=== PATIENT | male | born 1975 | race Caucasian/White ===

== ENCOUNTER 2016-11-29 13:00 | Emergency (ER) | payer SELFPAY ==
[2016-11-29 13:37] VITALS: BP 139/97
[2016-11-29] MEDS ORDERED: NACL 0.9% IR ONE (15:48)
[2016-11-29] MEDS ORDERED: MOTRIN PO ONE (15:48)
[2016-11-29] MEDS ORDERED: BOOSTRIX IM ONE (15:48)
[2016-11-29] MEDS ORDERED: TRIPLE ANTIBIOTIC TP ONE (15:48)
[2016-11-29] MEDS ORDERED: XYLOCAINE 1% 20 mL INFILTRATI ONE (16:13)
--- NOTE | 2016-11-29 16:56 | Emergency Department Report ---
Entered by SRIKANTH THOMAS, acting as scribe for SHARDA DEUTSCH NP. - General Chief Complaint: Laceration/Recheck/Suture Stated Complaint: LT FINGER LAC Time Seen by Provider: 11/29/16 15:45 Source: patient Mode of arrival: Ambulatory Limitations: No Limitations - History of Present Illness Initial Comments: 41 y/o male with no significant PMHx presents to the ED c/o a laceration to left middle finger that began today at 13:00. 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 Associated numbness to left middle finger, but he denies any pain/other injuries, tingling, fever, and chills. Denies LOC and head injury. Not UTD with tetanus. Patient states he did not take any medication for pain [employer]. NKDA. -: Sudden, This afternoon Time: 13:00 Location: other (left middle finger) Extremity Location: Left: Hand (middle finger) Place: work Patient Tetanus UTD: No Context: accidental, sharp object use (cut left middle finger while using a farebox repairer) Associated Symptoms: loss of feeling/numbness (numbness in left middle finger, but denies loss of feeling). denies: pain, suspect foreign body present, unable to move injured part, weakness followed by dizziness, nausea/vomiting, fever Treatments Prior to Arrival: bandage - Related Data Previous Rx's Medication Instructions Recorded Last Taken Type Cephalexin [Keflex] 500 mg PO Q6HR #28 capsule 11/29/16 Unknown Rx Ibuprofen [Motrin] 600 mg PO Q8H PRN #15 tablet 11/29/16 Unknown Rx Allergies Allergy/AdvReac Type Severity Reaction Status Date / Time No Known Allergies Allergy Unverified 11/29/16 13:34 ED Review of Systems Comment: All other systems reviewed and negative Constitutional: denies: chills, fever Respiratory: denies: cough, shortness of breath, wheezing Cardiovascular: denies: chest pain, palpitations Gastrointestinal: denies: nausea, vomiting Skin: other (laceration to left middle finger). denies: rash, lesions Neurological: numbness (numbness in left middle finger). denies: headache, weakness, paresthesias, other (tingling) ED Past Medical Hx - Past Medical History Previous Medical History?: No - Surgical History Past Surgical History?: No - Social History Smoking Status: Current Some Day Smoker Substance Use Type: Alcohol - Medications Home Medications: Home Medications Medication Instructions Recorded Confirmed Last Taken Type Cephalexin [Keflex] 500 mg PO Q6HR #28 capsule 11/29/16 Unknown Rx Ibuprofen [Motrin] 600 mg PO Q8H PRN #15 tablet 11/29/16 Unknown Rx ED Physical Exam - General Limitations: No Limitations General appearance: alert, in no apparent distress - Head Head exam: Present: atraumatic, normocephalic - Eye Eye exam: Present: normal appearance, PERRL, EOMI Pupils: Present: normal accommodation - ENT ENT exam: Present: normal exam, mucous membranes moist, normal external ear exam - Neck Neck exam: Present: normal inspection, full ROM. Absent: tenderness, lymphadenopathy - Respiratory Respiratory exam: Present: normal lung sounds bilaterally. Absent: respiratory distress, wheezes, rales, rhonchi, stridor - Cardiovascular Cardiovascular Exam: Present: regular rate, normal rhythm, normal heart sounds. Absent: systolic murmur, diastolic murmur, rubs, gallop - GI/Abdominal GI/Abdominal exam: Present: soft, normal bowel sounds. Absent: distended - Extremities Exam Extremities exam: Present: full ROM, tenderness (left middle finger tenderness) , normal capillary refill. Absent: normal inspection, joint swelling - Expanded Upper Extremity Exam Left Shoulder Exam: Present: normal inspection, full ROM Upper Arm exam: Present: normal inspection, full ROM Elbow exam: Present: normal inspection, full ROM Forearm Wrist exam: Present: normal inspection, full ROM Hand Wrist exam: Present: full ROM, tenderness (left middle finger), laceration (1 cm laceration to radial aspect of left middle finger). Absent: swelling, deformity, crepidus, dislocation, amputation, nail avulsion, subungual hematoma Neuro motor exam: Present: wrist extension intact Neurosensory exam: Present: radial nerve intact Vascular: Present: normal capillary refill, radial pulse (2+). Absent: vascular compromise, pulse deficit radial art - Back Exam Back exam: Present: normal inspection - Neurological Exam Neurological exam: Present: alert, oriented X3 - Psychiatric Psychiatric exam: Present: normal affect, normal mood - Skin Skin exam: Present: warm, dry. Absent: intact (1 cm laceration to radial aspect of left middle finger), rash ED Course Vital Signs 11/29/16 13:34 Temperature 98.5 F Pulse Rate 93 H Respiratory 16 Rate Blood Pressure 139/97 O2 Sat by Pulse 96 Oximetry - Reevaluation(s) Reevaluation #1: 11/29/16 15:48 Patient gave verbal consent for wound repair. Reevaluation #2: 11/29/16 16:45 PT tolerated sutures without any complications. Reevaluation #3: 11/29/16 16:53 pt placed in aluminum finger splint by nursing staff. pt nvi - Laceration /Wound Repair Left Finger Wound Location: upper extremity (L middle finger ) Wound Length (cm): 1 Wound's Depth, Shape: superficial, linear Wound Explored: clean Irrigated w/ Saline (ccs): 300 Betadine Prep?: Yes Anesthesia: 1% Lidocaine Volume Anesthetic (ccs): 6 Wound Debrided: minimal Wound Repaired With: sutures Suture Size/Type: 4:0 Number of Sutures: 3 Layer Closure?: No Sterile Dressing Applied?: Yes Progress: skin cleansed with betadine. 1% lidocaine used for digital block. PT stated that knife was dirty. site was flushed with sterile saline and explored. no fb seen. wound cleansed with betadine. 3 simple interrupted sutures placed. pt tolerated the procedure well - Pulse Oximetry Interpretation Digit-Finger Initial Pulse Oximetry Readin Actions Taken: none ED Medical Decision Making - Differential Diagnosis laceration, avulsion Critical Care Time: No ED Disposition Clinical Impression: Laceration of left middle finger, Need for Tdap vaccination Disposition: TO HOME OR SELFCARE Is pt being admited?: No Does the pt Need Aspirin: No Condition: Stable Instructions: Suture Care (ED), Finger Laceration (ED) Additional Instructions: Follow up with PCP in 3-5 days for bp recheck Return in 7-10 days for suture removal Return sooner if signs of infection Follow up with Worker's comp/ ortho Prescriptions: Cephalexin [Keflex] 500 mg PO Q6HR #28 capsule Ibuprofen [Motrin] 600 mg PO Q8H PRN #15 tablet PRN Reason: Pain Referrals: PRIMARY CARE, [Primary Care Provider] - 3-5 Days ANDERSON DOSS MD [Staff Physician] - 3-5 Days NAVARRO COLVIN MD [Staff Physician] - 3-5 Days Forms: Work/School Release Form(ED) Time of Disposition: 16:53 This documentation as recorded by the MARTHA de los santos JASMINE,accurately reflects the service I personally performed and the decisions made by ,SHARDA DEUTSCH, GAVIN.
== END 2016-11-29 17:02 | disposition home or self-care (01) ==
LOC: ED 13:00
DX: S61.212A Laceration without foreign body of right middle finger without damage to nail, initial encounter (principal); W26.8XXA Contact with other sharp object(s), not elsewhere classified, initial encounter; Y93.89 Activity, other specified; Y99.8 Other external cause status; Y92.89 Other specified places as the place of occurrence of the external cause; F17.200 Nicotine dependence, unspecified, uncomplicated
CPT/HCPCS: 90471; 90715; A6250